=== PATIENT | female | born 1950 | race Caucasian/White ===

== ENCOUNTER 2024-01-07 11:19 | Day surgery (SDC) | payer MEDICARE ==
[~2024-01-07] VITALS: Ht 162.6 cm; Wt 105.3 kg
[~2024-01-07 11:19] MED LIST: Lactated Ringer's 1,000 ML IV ONE
[2024-01-07] MEDS ORDERED: Ventolin5 MG/1 ML (11:46)
[2024-01-07] MEDS ORDERED: ACCOLATE (11:47)
[2024-01-07] MEDS ORDERED: IPRAT-ALBUT 0.5-3 ML (11:47)
[2024-01-07] MEDS ORDERED: POTASSIUM99 M3 (11:47)
[2024-01-07] MEDS ORDERED: FURO20 (11:47)
[2024-01-07] MEDS ORDERED: IRBE150 (11:48)
[2024-01-07] MEDS ORDERED: PANT40 (11:48)
[2024-01-07] MEDS ORDERED: AMLO5 (11:48)
[2024-01-07] MEDS ORDERED: ALPR.5 (11:49)
[2024-01-07] MEDS ORDERED: ATROVENT HFA12.9 GM (11:49)
[2024-01-07] MEDS ORDERED: ALBU90OI6 (11:49)
[2024-01-07] MEDS ORDERED: DULERA 100 MCG/13 GM (11:50)
[2024-01-07] MEDS ORDERED: TIOT18 (11:50)
[2024-01-07] MEDS ORDERED: ROPI.25 (11:50)
[2024-01-07] MEDS ORDERED: GABA300 (11:51)
[2024-01-07] MEDS ORDERED: DUPIXENT300 MG/21 (11:51)
[2024-01-07] MEDS ORDERED: CODACE30 (11:52)
[2024-01-07] MEDS ORDERED: FISH OIL 1,0001 EA10 (11:52)
[2024-01-07] MEDS ORDERED: Bentyl20 MG (11:52)
[2024-01-07] MEDS ORDERED: TRAM50 (11:52)
[2024-01-07] MEDS ORDERED: BACL10 (11:52)
[2024-01-07] MEDS ORDERED: Lactated Ringer's 1,000 ML IV ONE (12:40)
[2024-01-07] MEDS ORDERED: propofoL 100 ML IV ONE (13:02)
--- NOTE | 2024-01-07 13:50 | NUR ---
01/07/[address] REQUESTED THAT WE PLACE THE CECAL POLYP AND THE DISTAL ASCENDING COLON POLYP INTO THE SAME JAR.
[2024-01-07] MEDS ORDERED: propofoL 50 ML IV ONE (13:54)
--- NOTE | 2024-01-07 14:36 | NUR ---
01/07/24 0606 ELIJAH GALLARDO PT ADMITS TO HAVING DISCOMFORT OVER ESOPHAGEAL AREA BUT THROAT DOES NOT HAVE ANY DISCOMFORT
== END 2024-01-07 15:00 | disposition home or self-care (01) ==
LOC: ORSCSDS 11:19
PROVIDERS: Internal Medicine Gastroenterology
PROC: 0DBH8ZX Excision of Cecum, Via Natural or Artificial Opening Endoscopic, Diagnostic (ICD-10-PCS; principal; 2024-01-07 12:15)
PROC: 0DBK8ZX Excision of Ascending Colon, Via Natural or Artificial Opening Endoscopic, Diagnostic (ICD-10-PCS; principal; 2024-01-07 12:15)
PROC: 0DBN8ZX Excision of Sigmoid Colon, Via Natural or Artificial Opening Endoscopic, Diagnostic (ICD-10-PCS; principal; 2024-01-07 12:15)
PROC: 0DJ08ZZ Inspection of Upper Intestinal Tract, Via Natural or Artificial Opening Endoscopic (ICD-10-PCS; principal; 2024-01-07 12:15)
DX: R19.4 Change in bowel habit (principal); K21.00 Gastro-esophageal reflux disease with esophagitis, without bleeding; D12.0 Benign neoplasm of cecum; D12.2 Benign neoplasm of ascending colon; I10 Essential (primary) hypertension; J44.9 Chronic obstructive pulmonary disease, unspecified; G47.33 Obstructive sleep apnea (adult) (pediatric); E66.01 Morbid (severe) obesity due to excess calories; Z68.39 Body mass index [BMI] 39.0-39.9, adult; Z79.899 Other long term (current) drug therapy
CPT/HCPCS: 88305; J2704; J7120